=== PATIENT | male | born 1955 | race African-American/Black ===

== ENCOUNTER 2022-04-23 03:22 | Inpatient (IN) | payer MEDICARE ==
[~2022-04-23] VITALS: Ht 182.9 cm; Wt 95.3 kg
[2022-04-23] MEDS ORDERED: ACETAMINOPHEN 650 MG/20.3 ML UDC GT PRN (05:30)
[2022-04-23] MEDS ORDERED: ONDANSETRON HCL/PF 4 MG/2 ML VIAL IVP PRN (05:30)
[2022-04-23] MEDS ORDERED: AZITHROMYCIN 250 MG TABLET PO ONE (05:30)
[2022-04-23] MEDS ORDERED: ALBUTEROL SULFATE 8 GM HFA.AER.AD IH PRN (05:30)
[2022-04-23] MEDS ORDERED: NOREPINEPHRINE 32 MG in IV NS 0.9% 218 ML IV PRN (06:00)
== END 2022-04-23 08:56 | disposition still patient (30) | DRG 951 ==
LOC: ICU 03:22
PROVIDERS: ADMIT Internal Medicine Cardiovascular Disease; ATTEND Internal Medicine Cardiovascular Disease
DX: Z00.00 Encounter for general adult medical examination without abnormal findings (principal)
CPT/HCPCS: G0378